=== PATIENT | male | born 1950 | race Caucasian/White ===

== ENCOUNTER 2024-02-12 09:44 | Outpatient (CLI) | payer MEDICARE, BC | END 2024-02-12 09:45 | disposition home or self-care (01) | LOC: SCSMRI 09:44 | PROVIDERS: ATTEND Physician Assistant | DX: I65.09 Occlusion and stenosis of unspecified vertebral artery (principal); M54.2 Cervicalgia | CPT/HCPCS: 36415; 70544; 70549; 82565 ==